=== PATIENT | female | born 1930 | race Caucasian/White ===

== ENCOUNTER 2018-08-29 17:13 | Inpatient (IN) | payer OTHER ==
[~2018-08-29] VITALS: Ht 157.5 cm; Wt 73.0 kg
[2018-08-29 19:50] LABS: PLATELET COUNT 179 x10^3mcL (130-400); RED CELL DISTRIBUTION WIDTH 13.5 % (11.5-14.5)
[2018-08-29 19:54] LABS: CALCIUM 8.8 mg/dL (8.5-10.1); CARBON DIOXIDE 28.6 mmol/L (21-32); CHLORIDE SERUM 103 mmol/L (98-107); CREATININE SERUM 1.5 mg/dL (0.6-1.0); GLUCOSE SERUM 256 mg/dL (74-106); POTASSIUM SERUM 4.4 mmol/L (3.5-5.1); SODIUM SERUM 140 mmol/L (136-145)
[2018-08-29] MEDS ORDERED: METFORMIN HCL1000 MG PO (19:55)
[2018-08-29] MEDS ORDERED: GLUCOTROL5 MG PO (19:56)
[2018-08-29 19:59] LABS: ALBUMIN 3.6 g/dL (3.4-5.0); ALKALINE PHOSPHATASE 85 U/L (46-116); ALT/SGPT 15 U/L (14-59); AST/SGOT 18 U/L (15-37); BILIRUBIN TOTAL 1.2 mg/dL (0.20-1.00); TOTAL PROTEIN, SERUM 7.9 g/dL (6.4-8.2)
[2018-08-29 20:17] LABS: CHOLESTEROL/HDL RATIO 3.7; MAGNESIUM 1.8 mg/dL (1.8-2.4); PHOSPHOROUS 4.2 mg/dL (2.5-4.9)
[2018-08-29 20:19] LABS: BAND NEUTROPHIL 5 % (0-10); BASOPHIL 0 % (0-2); MONOCYTE 2 % (0-7); SEGMENTED NEUTROPHILS 80 % (37-75); rbc morphology (normal/abnorm) NORMAL (NORMAL)
[2018-08-29 20:20] LABS: PLATELET MORPHOLOGY PLATELETS NORMAL
[2018-08-29 20:25] LABS: FREE T4 1.25 ng/dL (0.76-1.46); FREE THYROXINE INDEX 3.6 ug/dL (1.4-4.5); T4(THYROXINE) 9.5 ug/dL (4.7-13.3)
[2018-08-29 20:43] VITALS: BP 136/89
[2018-08-29 21:46] LABS: BASOPHIL % 0.2 % (0-2); PLATELET COUNT 164 x10^3mcL (130-400); RED CELL DISTRIBUTION WIDTH 13.8 % (11.5-14.5)
[2018-08-29 23:49] LABS: UA SPECIFIC GRAVITY 1.025 (1.005-1.035); microscopic required? YES; urine erythrocyte NEGATIVE (NEGATIVE)
[2018-08-30 05:32] VITALS: BP 114/52
[2018-08-30 06:16] LABS: BASOPHIL % 0.1 % (0-2); PLATELET COUNT 164 x10^3mcL (130-400); RED CELL DISTRIBUTION WIDTH 13.5 % (11.5-14.5)
[2018-08-30 06:25] LABS: CALCIUM 8.4 mg/dL (8.5-10.1); CARBON DIOXIDE 29.5 mmol/L (21-32); CHLORIDE SERUM 105 mmol/L (98-107); CREATININE SERUM 1.3 mg/dL (0.6-1.0); GLUCOSE SERUM 198 mg/dL (74-106); SODIUM SERUM 141 mmol/L (136-145)
[2018-08-30 08:53] VITALS: BP 101/59
[2018-08-30 17:02] VITALS: BP 133/73
[2018-08-30 21:17] VITALS: BP 133/43
[2018-08-31 06:14] LABS: BASOPHIL % 0.5 % (0-2); PLATELET COUNT 156 x10^3mcL (130-400); RED CELL DISTRIBUTION WIDTH 13.5 % (11.5-14.5)
[2018-08-31 06:28] VITALS: BP 130/39
[2018-08-31 06:28] LABS: CALCIUM 8.3 mg/dL (8.5-10.1); CARBON DIOXIDE 26.1 mmol/L (21-32); CHLORIDE SERUM 104 mmol/L (98-107); CREATININE SERUM 1.1 mg/dL (0.6-1.0); GLUCOSE SERUM 194 mg/dL (74-106); POTASSIUM SERUM 3.8 mmol/L (3.5-5.1); SODIUM SERUM 138 mmol/L (136-145)
[2018-08-31 09:21] VITALS: BP 113/42
[2018-08-31 17:40] VITALS: BP 112/42
[2018-08-31 21:33] VITALS: BP 118/45
[2018-09-01 05:44] VITALS: BP 116/49
[2018-09-01 06:07] LABS: BASOPHIL % 0.4 % (0-2); PLATELET COUNT 139 x10^3mcL (130-400); RED CELL DISTRIBUTION WIDTH 13.3 % (11.5-14.5)
[2018-09-01 06:29] LABS: CALCIUM 8.1 mg/dL (8.5-10.1); CARBON DIOXIDE 28.9 mmol/L (21-32); CHLORIDE SERUM 106 mmol/L (98-107); GLUCOSE SERUM 209 mg/dL (74-106); POTASSIUM SERUM 4.3 mmol/L (3.5-5.1); SODIUM SERUM 142 mmol/L (136-145)
[2018-09-01 08:45] VITALS: BP 137/40
[2018-09-01 10:50] VITALS: Ht 157.5 cm; Wt 73.0 kg
[2018-09-01 13:00] VITALS: BP 137/40
[2018-09-01 16:51] VITALS: BP 128/39
== END 2018-09-01 19:39 | disposition home or self-care (01) | DRG 535 ==
LOC: ED 17:13 → MU 19:41
PROVIDERS: Emergency Medicine; Family Medicine; ADMIT Internal Medicine
DX: S32.511A Fracture of superior rim of right pubis, initial encounter for closed fracture (principal); N17.0 Acute kidney failure with tubular necrosis; E11.65 Type 2 diabetes mellitus with hyperglycemia; E78.5 Hyperlipidemia, unspecified; D72.829 Elevated white blood cell count, unspecified; Z68.32 Body mass index [BMI] 32.0-32.9, adult; Z79.84 Long term (current) use of oral hypoglycemic drugs; Z91.81 History of falling; W18.39XA Other fall on same level, initial encounter; Y93.89 Activity, other specified; Y92.018 Other place in single-family (private) house as the place of occurrence of the external cause
CPT/HCPCS: 82962; 84439; 97110-GP; 97530-GP; J1644; J2270; J2405; J2543; J7030

== ENCOUNTER 2018-09-02 00:14 | Inpatient (IN) | payer OTHER ==
[~2018-09-02] VITALS: Ht 157.5 cm; Wt 72.6 kg
[~2018-09-02 00:14] MED LIST: GLUCOTROL5 MG PO; METFORMIN HCL1000 MG PO
[2018-09-02 00:19] VITALS: Ht 157.5 cm; Wt 72.6 kg
[2018-09-02 01:41] LABS: BASOPHIL % 0.2 % (0-2); RED CELL DISTRIBUTION WIDTH 12.4 % (11.5-14.5)
[2018-09-02 01:42] LABS: PLATELET COUNT 161 x10^3mcL (130-400)
[2018-09-02 01:57] LABS: CALCIUM 8.9 mg/dL (8.5-10.1); CARBON DIOXIDE 25.5 mmol/L (21-32); CHLORIDE SERUM 104 mmol/L (98-107); GLUCOSE SERUM 236 mg/dL (74-106); POTASSIUM SERUM 4.1 mmol/L (3.5-5.1); SODIUM SERUM 140 mmol/L (136-145)
[2018-09-02 02:02] LABS: ALKALINE PHOSPHATASE 66 U/L (46-116); ALT/SGPT 12 U/L (14-59); AST/SGOT 15 U/L (15-37); BILIRUBIN TOTAL 1.7 mg/dL (0.20-1.00); TOTAL PROTEIN, SERUM 7.2 g/dL (6.4-8.2)
[2018-09-02 02:04] LABS: CHOLESTEROL/HDL RATIO 2.8; MAGNESIUM 1.8 mg/dL (1.8-2.4); PHOSPHOROUS 3.4 mg/dL (2.5-4.9)
[2018-09-02 03:04] VITALS: BP 133/61
[2018-09-02 05:57] VITALS: BP 145/66
[2018-09-02 06:16] LABS: CALCIUM 8.2 mg/dL (8.5-10.1); CARBON DIOXIDE 24.9 mmol/L (21-32); CHLORIDE SERUM 105 mmol/L (98-107); GLUCOSE SERUM 194 mg/dL (74-106); POTASSIUM SERUM 3.6 mmol/L (3.5-5.1); SODIUM SERUM 141 mmol/L (136-145)
[2018-09-02 06:29] LABS: BASOPHIL % 0.4 % (0-2); PLATELET COUNT 162 x10^3mcL (130-400); RED CELL DISTRIBUTION WIDTH 13.2 % (11.5-14.5)
[2018-09-02 07:51] VITALS: BP 121/59
[2018-09-02 11:39] VITALS: BP 147/60
[2018-09-02 16:07] VITALS: BP 130/67
[2018-09-02 21:18] VITALS: BP 144/56
[2018-09-03 06:09] VITALS: BP 112/50
[2018-09-03 09:14] VITALS: BP 123/54
[2018-09-03 16:25] VITALS: BP 118/55
[2018-09-03 20:56] VITALS: BP 118/58
[2018-09-04 05:34] VITALS: BP 115/54
[2018-09-04 09:37] VITALS: BP 122/40
[2018-09-04 17:39] VITALS: BP 127/61
[2018-09-04 21:24] VITALS: BP 114/51
[2018-09-05 05:52] VITALS: BP 104/59
[2018-09-05 09:00] VITALS: BP 100/53
[2018-09-05 12:43] VITALS: BP 100/53
== END 2018-09-05 14:22 | DRG 535 ==
LOC: ED 00:14 → MU 01:19
PROVIDERS: ADMIT Family Medicine
DX: S32.501A Unspecified fracture of right pubis, initial encounter for closed fracture (principal); N17.0 Acute kidney failure with tubular necrosis; E44.0 Moderate protein-calorie malnutrition; E11.65 Type 2 diabetes mellitus with hyperglycemia; Z79.84 Long term (current) use of oral hypoglycemic drugs; Z68.30 Body mass index [BMI] 30.0-30.9, adult; W18.39XA Other fall on same level, initial encounter; Y93.89 Activity, other specified; Y92.018 Other place in single-family (private) house as the place of occurrence of the external cause
CPT/HCPCS: 82962; 97110-GP; 97116-GP; 97530-GP; J2270

== ENCOUNTER 2020-05-05 10:03 | Emergency (ER) | payer OTHER ==
[~2020-05-05] VITALS: Ht 162.6 cm; Wt 81.6 kg
[2020-05-05 10:10] VITALS: Ht 162.6 cm; Wt 81.6 kg
[2020-05-05 15:45] LABS: BASOPHIL % 0.4 % (0-2); PLATELET COUNT 210 x10^3mcL (130-400)
[2020-05-05 15:57] LABS: RED CELL DISTRIBUTION WIDTH 15.3 % (11.5-14.5)
[2020-05-05 16:28] LABS: CALCIUM 9.5 mg/dL (8.5-10.1); CARBON DIOXIDE 30.4 mmol/L (21-32); CHLORIDE SERUM 103 mmol/L (98-107); CREATININE SERUM 1.2 mg/dL (0.6-1.0); GLUCOSE SERUM 151 mg/dL (74-106); POTASSIUM SERUM 4.4 mmol/L (3.5-5.1); SODIUM SERUM 137 mmol/L (136-145)
[2020-05-05 16:33] LABS: ALBUMIN 3.5 g/dL (3.4-5.0); ALKALINE PHOSPHATASE 117 U/L (46-116); ALT/SGPT 20 U/L (14-59); AST/SGOT 24 U/L (15-37); BILIRUBIN TOTAL 0.9 mg/dL (0.20-1.00); TOTAL PROTEIN, SERUM 7.4 g/dL (6.4-8.2)
[2020-05-05 16:52] VITALS: BP 133/61
== END 2020-05-05 16:52 | disposition home or self-care (01) ==
LOC: ED 10:03
PROVIDERS: Emergency Medicine
DX: S76.011A Strain of muscle, fascia and tendon of right hip, initial encounter (principal); W18.30XA Fall on same level, unspecified, initial encounter; Y93.89 Activity, other specified; Y92.89 Other specified places as the place of occurrence of the external cause; Y99.8 Other external cause status
CPT/HCPCS: 83880; J2270; J2405

== ENCOUNTER 2020-07-06 15:05 | Inpatient (IN) | payer OTHER ==
[~2020-07-06] VITALS: Ht 157.5 cm; Wt 85.3 kg
[2020-07-06 16:56] LABS: BASOPHIL % 0.3 % (0.2-1.3); PLATELET COUNT 304 x10^3mcL (179-408); RED CELL DISTRIBUTION WIDTH 14.5 % (12.3-17.7)
[2020-07-06 17:08] LABS: CALCIUM 8.3 mg/dL (8.5-10.1); CARBON DIOXIDE 32.1 mmol/L (21-32); CHLORIDE SERUM 98 mmol/L (98-107); CREATININE SERUM 1.3 mg/dL (0.6-1.0); GLUCOSE SERUM 402 mg/dL (74-106); POTASSIUM SERUM 4.4 mmol/L (3.5-5.1); SODIUM SERUM 131 mmol/L (136-145)
[2020-07-06 17:21] LABS: ALKALINE PHOSPHATASE 105 U/L (46-116); ALT/SGPT 19 U/L (14-59); AST/SGOT 20 U/L (15-37); BILIRUBIN TOTAL 0.9 mg/dL (0.20-1.00); LACTIC DEHYDROGENASE (LDH) 162 U/L (100-190); LIPASE 138 IU/L (73-393); TOTAL PROTEIN, SERUM 7.2 g/dL (6.4-8.2)
[2020-07-06 17:25] LABS: ALBUMIN 2.2 g/dL (3.4-5.0)
[2020-07-06 17:38] LABS: C REACTIVE PROTEIN 26.5 mg/dL (<=0.9)
[2020-07-06 18:46] LABS: microscopic required? NO
[2020-07-06 18:59] LABS: urine erythrocyte NEGATIVE (NEGATIVE)
[2020-07-06 20:57] LABS: IRON 22 ug/dL (50-170); TOTAL IRON BINDING CAPACITY 163 ug/dL (250-450)
[2020-07-06 23:01] VITALS: BP 115/50
[2020-07-07 05:11] VITALS: Ht 157.5 cm; Wt 85.3 kg
[2020-07-07 05:31] VITALS: BP 150/61
[2020-07-07 06:58] LABS: BASOPHIL % 0.2 % (0.2-1.3); PLATELET COUNT 250 x10^3mcL (179-408); RED CELL DISTRIBUTION WIDTH 14.4 % (12.3-17.7)
[2020-07-07 08:09] LABS: ALKALINE PHOSPHATASE 100 U/L (46-116); ALT/SGPT 19 U/L (14-59); AST/SGOT 20 U/L (15-37); BILIRUBIN TOTAL 0.5 mg/dL (0.20-1.00); CALCIUM 8.9 mg/dL (8.5-10.1); CARBON DIOXIDE 35.5 mmol/L (21-32); CHLORIDE SERUM 104 mmol/L (98-107); CREATININE SERUM 1.1 mg/dL (0.6-1.0); GLUCOSE SERUM 90 mg/dL (74-106); MAGNESIUM 2.2 mg/dL (1.8-2.4); PHOSPHOROUS 3.9 mg/dL (2.5-4.9); SODIUM SERUM 142 mmol/L (136-145); TOTAL PROTEIN, SERUM 7.1 g/dL (6.4-8.2)
[2020-07-07 08:12] LABS: ALBUMIN 2.1 g/dL (3.4-5.0)
[2020-07-07 09:19] LABS: C REACTIVE PROTEIN 33.2 mg/dL (<=0.9)
[2020-07-07 19:59] VITALS: BP 121/56
[2020-07-08 05:23] VITALS: BP 116/68
[2020-07-08 07:43] LABS: BASOPHIL % 0.6 % (0.2-1.3); PLATELET COUNT 282 x10^3mcL (179-408); RED CELL DISTRIBUTION WIDTH 14.1 % (12.3-17.7)
[2020-07-08 08:36] LABS: CALCIUM 9.3 mg/dL (8.5-10.1); CARBON DIOXIDE 34.6 mmol/L (21-32); CHLORIDE SERUM 101 mmol/L (98-107); GLUCOSE SERUM 150 mg/dL (74-106); MAGNESIUM 2.3 mg/dL (1.8-2.4); PHOSPHOROUS 3.7 mg/dL (2.5-4.9); POTASSIUM SERUM 4.4 mmol/L (3.5-5.1); SODIUM SERUM 140 mmol/L (136-145)
[2020-07-08 08:37] VITALS: BP 131/56
[2020-07-08 13:12] VITALS: BP 131/64
[2020-07-08 17:29] VITALS: BP 138/71
[2020-07-08 21:17] VITALS: BP 117/54
[2020-07-09 05:44] VITALS: BP 124/54
[2020-07-09 07:20] LABS: BASOPHIL % 0.5 % (0.2-1.3); PLATELET COUNT 313 x10^3mcL (179-408); RED CELL DISTRIBUTION WIDTH 14.4 % (12.3-17.7)
[2020-07-09 07:46] LABS: CALCIUM 9.1 mg/dL (8.5-10.1); CHLORIDE SERUM 101 mmol/L (98-107); CREATININE SERUM 1.2 mg/dL (0.6-1.0); GLUCOSE SERUM 155 mg/dL (74-106); SODIUM SERUM 140 mmol/L (136-145)
[2020-07-09 09:37] VITALS: BP 104/69
[2020-07-09 12:14] VITALS: BP 110/49
[2020-07-09 18:33] VITALS: BP 109/45
[2020-07-09 19:17] VITALS: BP 121/46
[2020-07-10 04:40] VITALS: BP 104/44
[2020-07-10 07:47] LABS: BASOPHIL % 0.5 % (0.2-1.3); PLATELET COUNT 308 x10^3mcL (179-408); RED CELL DISTRIBUTION WIDTH 14.4 % (12.3-17.7)
[2020-07-10 08:28] LABS: ALKALINE PHOSPHATASE 94 U/L (46-116); ALT/SGPT 33 U/L (14-59); AST/SGOT 29 U/L (15-37); BILIRUBIN DIRECT 0.15 mg/dL (0.0-0.2); CALCIUM 9.8 mg/dL (8.5-10.1); CARBON DIOXIDE 38.8 mmol/L (21-32); CHLORIDE SERUM 102 mmol/L (98-107); CREATININE SERUM 1.2 mg/dL (0.6-1.0); GLUCOSE SERUM 111 mg/dL (74-106); POTASSIUM SERUM 4.8 mmol/L (3.5-5.1); SODIUM SERUM 140 mmol/L (136-145); TOTAL PROTEIN, SERUM 7.1 g/dL (6.4-8.2)
[2020-07-10 08:44] LABS: ALBUMIN 2.1 g/dL (3.4-5.0)
[2020-07-10 10:19] VITALS: BP 119/44
[2020-07-10 13:43] VITALS: BP 106/52
[2020-07-10 17:29] VITALS: BP 100/67
[2020-07-10 19:22] VITALS: BP 106/50
[2020-07-11 05:02] VITALS: BP 129/68
[2020-07-11 06:06] LABS: BILIRUBIN DIRECT 0.17 mg/dL (0.0-0.2); BILIRUBIN TOTAL 0.31 mg/dL (0.20-1.00); TOTAL PROTEIN, SERUM 7.2 g/dL (6.4-8.2)
[2020-07-11 06:07] LABS: ALBUMIN 2.3 g/dL (3.4-5.0)
[2020-07-11 08:08] VITALS: BP 107/56
[2020-07-11] MEDS ORDERED: VENTOLIN H0.09 MG/A1 INH (11:49)
[2020-07-11] MEDS ORDERED: DECADRON6 MG PO (11:49)
[2020-07-11] MEDS ORDERED: ZIT250 PO (11:50)
[2020-07-11 12:26] VITALS: BP 119/62
[2020-07-11 13:35] VITALS: BP 119/62
== END 2020-07-11 15:43 | disposition home or self-care (01) | DRG 871 ==
LOC: ED 15:05 → DU 19:01
PROVIDERS: Emergency Medicine; Internal Medicine; ADMIT Family Medicine; ATTEND Family Medicine
PROC: XW033E5 Introduction of Remdesivir Anti-infective into Peripheral Vein, Percutaneous Approach, New Technology Group 5 (ICD-10-PCS; principal; 2020-07-09)
DX: A41.89 Other specified sepsis (principal); J96.02 Acute respiratory failure with hypercapnia; N17.0 Acute kidney failure with tubular necrosis; E43 Unspecified severe protein-calorie malnutrition; U07.1 COVID-19; J18.9 Pneumonia, unspecified organism; E11.43 Type 2 diabetes mellitus with diabetic autonomic (poly)neuropathy; K31.84 Gastroparesis; M19.90 Unspecified osteoarthritis, unspecified site; M81.0 Age-related osteoporosis without current pathological fracture; D63.8 Anemia in other chronic diseases classified elsewhere; Z68.34 Body mass index [BMI] 34.0-34.9, adult; Z90.49 Acquired absence of other specified parts of digestive tract
CPT/HCPCS: 36600; 82962; 83880; 85378; 87804; 90658; 97110-GP; 97116-GP; C9113; G0378; J0456; J0696; J1100; J1644; J3535; J7040; J7050; J7060; U0003